=== PATIENT | female | born 1975 | race Caucasian/White ===

== ENCOUNTER 2022-06-16 14:17 | Outpatient (CLI) | payer OTHER | END 2022-06-16 14:18 | disposition home or self-care (01) | LOC: NAV RAD 14:17 | PROVIDERS: ATTEND Family Medicine | DX: M51.16 Intervertebral disc disorders with radiculopathy, lumbar region (principal); M43.06 Spondylolysis, lumbar region | CPT/HCPCS: 72100 ==